=== PATIENT | male | born 2000 | race Caucasian/White ===

== ENCOUNTER 2020-10-20 23:48 | Emergency (ER) | payer SELFPAY ==
[~2020-10-20] VITALS: Ht 177.8 cm; Wt 73.8 kg
--- NOTE | 2020-10-21 00:10 | NUR ---
PT STATES HAVING RIGHT SIDED FLANK PAIN WITH BLOOD IN URINE. PT STATES NO MEDICAL HISTORY BUT HAS BEEN ON"FERNANDEZ" OF DRINKING ALCOHOL. PT UNABLE TO URINATE AT THIS TIME, PTROVIDED URINE CUP. ERP AT BEDSIDE
[2020-10-21 00:58] LABS: MICROSCOPIC INDICATED
[2020-10-21 02:00] VITALS: BP 128/81
[2020-10-21] MEDS ORDERED: IBUPROFEN 600 MG TABLET PO ONE (02:00)
[2020-10-21] MEDS ORDERED: IBUPROFEN 600 MG TABLET ONE (02:04)
--- NOTE | 2020-10-21 02:19 | NUR ---
PT HAS NO ALLERGIES TO MEDICINE.
[2020-10-21] MEDS ORDERED: PLEASE ENTER ALLERGIES MC SCH (02:30)
== END 2020-10-21 02:49 | disposition home or self-care (01) ==
LOC: ED 10-21 00:18
DX: R31.0 Gross hematuria (principal); R10.9 Unspecified abdominal pain; F17.210 Nicotine dependence, cigarettes, uncomplicated
CPT/HCPCS: 74176; 81001; 99406